=== PATIENT | female | born 1940 | race Two or more races ===

== ENCOUNTER 2024-10-15 17:34 | Emergency (ER) | payer OTHER ==
[2024-10-15 17:54] VITALS: BP 119/76; PULSE 76; RESP 16
[2024-10-15 18:41] LABS: BASO % 0.9 % (0-2.0); EOS % 2.5 % (0-4.5); HEMATOCRIT 36.7 % (32.4-45.2); HEMOGLOBIN 12.2 GM/dL (10.7-15.3); LYMPH % 15.5 % (8-40); MCHC 33.1 g/dl (32.0-36.0); MEAN CELL VOLUME 84.6 fl (80-96); MEAN PLT VOLUME 8.1 fl (7.5-11.1); MONO % 10.2 % (3.8-10.2); NEUT % 70.9 % (42.8-82.8); PLATELET COUNT 186 10^3/uL (134-434); RBC 4.34 M/mm3 (3.60-5.2); RDW 16.5 % (11.6-15.6); WHITE BLOOD COUNT 8.3 K/mm3 (4.0-10.0)
[2024-10-15] MEDS ORDERED: ACETAMINOPHEN 325 MG TABLET (FP) ONE (18:43)
[2024-10-15 18:53] VITALS: TEMP 98.4
[2024-10-15 19:04] LABS: POTASSIUM 4.2 mmol/L (3.5-5.1)
[2024-10-15 19:06] LABS: CALCIUM 9.4 mg/dL (8.5-10.1)
[2024-10-15 19:07] LABS: ALBUMIN 3.2 g/dl (3.4-5.0); BLOOD UREA NITROGEN 27.8 mg/dL (7-18)
[2024-10-15 19:10] LABS: CREATININE 0.9 mg/dL (0.55-1.3)
[2024-10-15 19:11] LABS: BILIRUBIN,TOTAL 0.4 mg/dL (0.2-1); TOT PROT 6.5 g/dl (6.4-8.2)
[2024-10-15] MEDS: ACETAMINOPHEN 500 MG TABLET (FP) PO ONE (19:18)
[2024-10-15] MEDS: LIDOCAINE 5% TOPICAL PATCH TP ONE (19:18)
[2024-10-15] MEDS: SODIUM CHLORIDE 0.9% 500 ML INFUS.BAG IV ONE (20:21)
[2024-10-15] MEDS: ACETAMINOPHEN 1000 MG/100 ML BAG IVPB ONE (20:26)
[2024-10-15] MEDS ORDERED: LIDOCAINE PATCH REMOVAL MC SCH (22:00)
== END 2024-10-15 22:35 | disposition home or self-care (01) ==
LOC: JER 17:34
DX: N64.4 Mastodynia (principal)
CPT/HCPCS: 36415; 71046-TC-FY; 80053; 84484; 85025; 93005; 93010; 99285-25